=== PATIENT | male | born 1980 | race Caucasian/White ===

== ENCOUNTER 2019-12-30 20:04 | Emergency (ER) | payer BC ==
--- NOTE | 2019-12-30 21:44 | EDM.PDOC ---
ED HPI GENERAL MEDICAL PROBLEM - General Chief Complaint: Respiratory Problem Stated Complaint: COLD FEVER Time Seen by Provider: 12/30/19 21:28 Source of Information: Reports: Patient History Limitations: Reports: No Limitations - History of Present Illness INITIAL COMMENTS - FREE TEXT/NARRATIVE: 39-year-old male presents the emergency room with a chief complaint of dyspnea on exertion and coughing while at work. Patient states he is very weak. Patient resides in [facility] and is exposed to international travel. Patient has no fever and chills has a history of allergies. Onset: Today Duration: Hour(s):, Heavy Location: Reports: Chest Severity: Moderate Improves with: Reports: None Worsens with: Reports: Breathing, Movement Associated Symptoms: Reports: No Other Symptoms headache Pain Score (Numeric/FACES): 4 - Related Data Allergies Allergy/AdvReac Type Severity Reaction Status Date / Time No Known Allergies Allergy Verified 12/30/19 20:18 Home Meds: Home Meds Cetirizine HCl [Zyrtec] 10 mg PO DAILY 12/30/19 [History] Past Medical History - Past Health History Medical/Surgical History: Denies Medical/Surgical History - Infectious Disease History Infectious Disease History: Reports: Chicken Pox Social & Family History - Family History Family Medical History: Noncontributory - Tobacco Use Smoking Status *Q: Former Smoker Used Tobacco, but Quit: Yes Month/Year Tobacco Last Used: 2019 - Caffeine Use Caffeine Use: Reports: Soda - Recreational Drug Use Recreational Drug Use: No ED ROS GENERAL - Review of Systems Review Of Systems: See Below Constitutional: Reports: Fever, Chills, Malaise HEENT: Reports: No Symptoms Respiratory: Reports: Shortness of Breath, Cough Cardiovascular: Reports: No Symptoms Endocrine: Reports: No Symptoms GI/Abdominal: Reports: No Symptoms : Reports: No Symptoms Musculoskeletal: Reports: No Symptoms Skin: Reports: No Symptoms Neurological: Reports: No Symptoms Psychiatric: Reports: No Symptoms Hematologic/Lymphatic: Reports: No Symptoms Immunologic: Reports: No Symptoms ED EXAM, GENERAL - Physical Exam Exam: See Below Free Text/Narrative:: Exam patient is very dyspneic on exertion. Lungs are c Abdomen sLft lear Exam Limited By: No Limitations General Appearance: Alert, WD/WN, Moderate Distress Eye Exam: Bilateral Eye: Normal Fundi, Normal Inspection Ears: Normal External Exam, Normal Canal Ear Exam: Bilateral Ear: Auricle Normal, Canal Normal Nose: Normal Inspection Throat/Mouth: Normal Inspection Head: Atraumatic Neck: Normal Inspection Respiratory/Chest: No Respiratory Distress, Lungs Clear, Normal Breath Sounds, No Accessory Muscle Use, Other (dyspnic) Cardiovascular: Normal Peripheral Pulses, Regular Rate, Rhythm GI/Abdominal: Normal Bowel Sounds, Soft (Male) Exam: Deferred Rectal (Males) Exam: Deferred Back Exam: Normal Inspection, Full Range of Motion Extremities: Normal Inspection, Normal Range of Motion, No Pedal Edema Neurological: Alert, Oriented, CN II-XII Intact, Normal Reflexes, No Motor/ Sensory Deficits Psychiatric: Normal Affect, Normal Mood Skin Exam: Warm, Dry, Intact, Normal Color Lymphatic: No Adenopathy Course - Vital Signs Text/Narrative:: This is a 39-year-old male from [place] who presents to the emergency room with a chief complaint of coughing and feeling weak. Patient was instructed by his boss to come to the emergency room to make sure he was okay. Patient is negative for influenza and patient's chest x-ray is normal. Patient has not spiked a fever while in the emergency room. Because of his travel and exposure at the airport I have done a COV19 The patient which is for the next 48 hours. The patient will be placed on a Zithromax and self containment Last Recorded V/S: Last Vital Signs Temp 98.2 F 12/30/19 23:25 Pulse 80 12/30/19 23:25 Resp 18 12/30/19 23:25 BP 135/86 12/30/19 23:25 Pulse Ox 97 12/30/19 23:25 - Orders/Labs/Meds Orders: Active Orders 24 hr Category Date Time Status CORONAVIRUS (COVID-19) PCR [MREF] Stat Lab 12/30/19 21:40 Received Azithromycin [Zithromax] Med 12/31/19 00:36 Once 500 mg PO Q24H ONE Isolation [COMM] Routine Oth 12/30/19 21:36 Active Medication Orders Azithromycin (Zithromax) 500 mg PO Q24H ONE Stop: 12/31/19 00:37 Meds: Medications Generic Name Dose Route Start Last Admin Trade Name Freq PRN Reason Stop Dose Admin Azithromycin 500 mg 12/31/19 00:36 Zithromax PO 03/22/20 00:37 Q24H ONE Departure - Departure Time of Disposition: 00:40 Disposition: Home, Self-Care 01 Clinical Impression: Upper respiratory tract infection - Discharge Information Referrals: PCP,None [Primary Care Provider] - Forms: ED Department Discharge Sepsis Event Note - Evaluation Sepsis Screening Result: No Definite Risk - Focused Exam Vital Signs: Vital Signs Temp Pulse Resp BP Pulse Ox 12/30/19 23:25 98.2 F 80 18 135/86 97 12/30/19 20:18 97.7 F 88 17 151/82 H 97 Date Exam was Performed: 12/31/19 Time Exam was Performed: 00:37 - My Orders Last 24 Hours: My Active Orders 12/30/19 21:36 Isolation [COMM] Routine 12/30/19 21:40 CORONAVIRUS (COVID-19) PCR [MREF] Stat 12/31/19 00:36 Azithromycin [Zithromax] 500 mg PO Q24H ONE - Assessment/Plan Last 24 Hours: My Active Orders 12/30/19 21:36 Isolation [COMM] Routine 12/30/19 21:40 CORONAVIRUS (COVID-19) PCR [MREF] Stat 12/31/19 00:36 Azithromycin [Zithromax] 500 mg PO Q24H ONE
--- NOTE | 2019-12-30 22:32 | CR ---
INDICATION: Cough, chest pain TECHNIQUE: Chest radiograph 1 view on 2 films COMPARISON: None FINDINGS: Mediastinum: The mediastinum is normal in appearance. The heart silhouette is normal in size and morphology. Lung: Both lungs are unremarkable in appearance. No sign of pleural effusion seen. No pneumothorax is identified. Bone and Soft tissue: Unremarkable for age. IMPRESSION: 1. No acute cardiopulmonary disease is seen. Dictated by: Calderon Chavira MD @ 12/30/2019 22:31:11 (Electronically Signed)
[2019-12-31] MEDS ORDERED: Azithromycin 250 MG Tab PO ONE (00:36)
== END 2019-12-31 01:02 | disposition home or self-care (01) ==
LOC: MW.ED 20:04
DX: J06.9 Acute upper respiratory infection, unspecified (principal)
CPT/HCPCS: 71045; 87804; 99285; A9270; U0001